=== PATIENT | male | born 1980 | race Caucasian/White ===

== ENCOUNTER → 2018-05-27 10:14 | Outpatient (CLI) | payer MEDICAID, SELFPAY ==
--- NOTE | 2018-05-27 10:22 | XR_ITS ---
XR wrist LT min 3V HISTORY pain ITS.REASON: cts ORDERING PHYSICIAN: Gabriela Kendrick PATIENT AGE: 37 years Comparison: None FINDINGS: No fracture or dislocation. No lytic or blastic change. There is normal mineralization.. The joint spaces are well-preserved. No significant degenerative/arthritic changes. No erosive changes evident.. IMPRESSION: Negative wrist
[2018-05-27 14:31] LABS: Basophils # 0.1 K/mm3 (0-0.2); Basophils % 0.4 % (0.1-2.0); Hematocrit 45.2 % (42.0-52.0); Hemoglobin 15.4 g/dL (14.1-18.0); Lymphocytes # 1.9 K/mm3 (0.7-4.5); Lymphocytes % 13.2 % (10-50); Mean Corpuscular HGB Conc 34.1 g/dL (31.8-35.4); Mean Corpuscular Hemoglobin 29.6 pg (27.0-31.2); Mean Corpuscular Volume 86.6 fl (80-94); Mean Platelet Volume 8.9 fl (7.4-10.4); Monocytes # 0.5 K/mm3 (0.1-1.0); Monocytes % 3.3 % (1.7-9.3); Neutrophils # 11.7 K/mm3 (1.8-7.8); Neutrophils % 83.1 % (37.0-80.0); Platelet Count 371 K/mm3 (142-424); Red Blood Count 5.22 M/mm3 (4.60-6.20); White Blood Count 14.1 K/mm3 (4.8-10.8)
[2018-05-27 14:41] LABS: Alanine Aminotransferase 50 U/L (12-78); Albumin Level 4.1 gm/dL (3.4-5.0); Albumin/Globulin Ratio 1.2 (1.1-1.8); Alkaline Phosphatase 78 U/L (46-116); Anion Gap 13.7 mEq/L (5-15); Aspartate Amino Transferase 17 U/L (15-37); Bilirubin,Total 0.6 mg/dL (0.2-1.0); Blood Urea Nitrogen 11 mg/dL (7-18); Calcium 9.4 mg/dL (8.5-10.1); Carbon Dioxide 27 mmol/L (21.0-32.0); Chloride 104 mmol/L (98-107); Chol/HDL Ratio 2.9 (1-3.5); Cholesterol 123 mg/dL (140-200); Creatinine,Serum 0.85 mg/dL (0.70-1.30); Estimated Glomerular Filt Rate 100 ml/min (>60); Free Thyroxine Index 4.6 ug/dL (5.93-13.13); GFR (African American) 121 ML/MIN (>60); Globulin 3.3 gm/dl (1.3-3.2); Glucose 126 mg/dL (74-106); HDL Cholesterol 42 mg/dL (27-67); LDL Cholesterol 64 mg/dL (0-130); Phosphorous 2.3 mg/dL (2.4-4.9); Potassium 4.7 mmoL/L (3.5-5.1); Sodium 140 mmol/L (136-145); T4 (Thyroxine) 15.9 ug/dl (4.7-13.3); Thyroid Stimulating Hormone 0.89 uIU/ml (0.358-3.740); Total Protein,Serum 7.4 gm/dL (6.4-8.2); Triglycerides 83 mg/dL (30-200); Triiodothryronine (T3) Uptake 29 % (31-39); VLDL Cholesterol 17 mg/dL (0-40)
[2018-05-27 15:01] LABS: Hemoglobin A1C 5.9 % (0.0-7.0)
[2018-05-27 15:33] LABS: Amphetamine/Metha Screen,Urine Positive ng/mL (<1000); Barbiturates Screen,Urine Negative ng/mL (<200); Benzodiazepines Screen,Urine Negative ng/mL (<200); Cannabinoid Screen,Urine Negative ng/mL (<50); Cocaine Screen,Urine Negative ng/mL (<300); Methadone Screen,Urine Negative ng/mL (<300); Opiate Screen,Urine Negative ng/mL (<300); Phencyclidine Screen,Urine Negative ng/mL (<25)
[2018-05-29 06:22] LABS: Hep A Ab, IgM Negative (Negative); Hepatitis B Core Antibody IgM Negative (Negative); Hepatitis B Surface Antigen Negative (Negative)
[2018-05-29 11:01] LABS: Hepatitis C Antibody >11.0 s/co ratio (0.0-0.9)
[2018-05-29 11:02] LABS: Microalbumin, Urine 4.7 ug/mL (Not Estab.)
== END ==
PROVIDERS: PCP Nurse Practitioner Family; Visit Provider Nurse Practitioner Family
DX: M25.532 Pain in left wrist (principal); I10 Essential (primary) hypertension; R53.83 Other fatigue; G56.02 Carpal tunnel syndrome, left upper limb; E55.9 Vitamin D deficiency, unspecified; K21.9 Gastro-esophageal reflux disease without esophagitis; R73.9 Hyperglycemia, unspecified
CPT/HCPCS: 73110; 80053; 80061; 80069; 80074; 80305; 82043; 82652; 83036; 84436; 84443; 84479; 85025

== ENCOUNTER 2023-04-04 13:12 | Emergency (ER) | payer MEDICAID, SELFPAY ==
[2023-04-04] VITALS (14 sets, daily range): BP systolic 83–123; BP diastolic 41–64; PULSE 94–113; RESP 20; TEMP 36.7; O2SAT 91–99; BMI 34.2
--- NOTE | 2023-04-04 13:18 | ECG_ITS ---
APPROVED REPORT Exam: Resting ECG HR:111 bpm ECG Measurements Heart Rate 111 AXES IL 135 P 55 QRSd 104 QRS 64 QT 311 T 55 QTc 377 Conclusion SINUS TACHYCARDIA POSSIBLE LEFT ATRIAL ENLARGEMENT [-0.1mV P-WAVE IN V1/V2] INCOMPLETE RIGHT BUNDLE BRANCH BLOCK [90+ ms QRS DURATION, TERMINAL R IN V1/V2, 40+ ms S IN I/aVL/V4/V5/V6] ABNORMAL RHYTHM ECG UNCONFIRMED REPORT Electronically signed by : Jeffry Bingham MD 04/06/2023 08:32:11
--- NOTE | 2023-04-04 13:21 | XR_ITS ---
PROCEDURE INFORMATION: Exam: XR Chest Exam date and time: 04/04/2023 1:19 PM Age: 42 years old Clinical indication: Pain; Other: Cp; Additional info: Chest pain TECHNIQUE: Imaging protocol: Radiologic exam of the chest. Views: 2 views. COMPARISON: No relevant prior studies available. FINDINGS: Lungs: No consolidation or lung nodules. Pleural spaces: No pleural effusion. No pneumothorax. Heart/Mediastinum: No abnormalities. No cardiomegaly. No pulmonary vascular congestion. Bones/joints: No fractures or bone lesions. IMPRESSION: No acute findings in the chest.
--- NOTE | 2023-04-04 13:26 | PC.NURSE ---
Pt gone to RAD via wheelchair
[2023-04-04 13:31] LABS: Chloride 101 mmol/L (98-107); Sodium 136 mmol/L (136-145)
[2023-04-04 13:32] LABS: Basophils % 0.4 % (0.1-2.0); Eosinophils # 0.3 K/mm3 (0.0-0.4); Eosinophils % 2.8 % (0.1-12.0); Hematocrit 37.3 % (42.0-52.0); Hemoglobin 12.7 g/dL (14.1-18.0); Lymphocytes # 2.3 K/mm3 (0.7-4.5); Mean Corpuscular Hemoglobin 29.8 pg (27.0-31.2); Mean Corpuscular Volume 87.7 fl (80-94); Mean Platelet Volume 8.9 fl (7.4-10.4); Monocytes # 0.6 K/mm3 (0.1-1.0); Neutrophils # 6.3 K/mm3 (1.8-7.8); Neutrophils % 66.8 % (37.0-80.0); Platelet Count 273 K/mm3 (142-424); Potassium 4.8 mmoL/L (3.5-5.1); Red Blood Count 4.26 M/mm3 (4.60-6.20); Red Cell Distribution Width 14.2 % (11.5-17.5); White Blood Count 9.4 K/mm3 (4.8-10.8)
--- NOTE | 2023-04-04 13:33 | PC.NURSE ---
Pt returned from RAD
[2023-04-04 13:34] LABS: Alanine Aminotransferase 150 U/L (12-78); Albumin/Globulin Ratio 1.4 (1.1-1.8); Alkaline Phosphatase 55 U/L (38-126); Anion Gap 14.8 mEq/L (5-15); Aspartate Amino Transferase 436 U/L (17-59); Bilirubin,Total 0.7 mg/dl (0.2-1.3); Blood Urea Nitrogen 75 mg/dl (9-20); Carbon Dioxide 25 mmol/L (22.0-30.0); Creatinine Clearance Estimated 37 mL/min (50-200); Estimated Glomerular Filt Rate 15 ml/min (>60); GFR (African American) 19 ML/MIN (>60); Globulin 2.9 g/dL (1.3-3.2); Total Protein,Serum 6.9 g/dl (6.3-8.2)
[2023-04-04 13:35] LABS: Calcium 7.4 mg/dl (8.4-10.2); Glucose 124 mg/dl (74-100)
--- NOTE | 2023-04-04 13:40 | PC.NURSE ---
lab called with critical creat 4.2 AWARE
[2023-04-04 13:47] LABS: Troponin I < 0.01 ng/ml (0.00-0.034)
--- NOTE | 2023-04-04 14:28 | CT_ITS ---
PROCEDURE INFORMATION: Exam: CTA Abdomen and Pelvis With Contrast Exam date and time: 04/04/2023 2:48 PM Age: 42 years old Clinical indication: Abdominal pain; Generalized; Additional info: Low abd pain rad to back, [place] TECHNIQUE: Imaging protocol: Computed tomographic angiography of the abdomen and pelvis with contrast. Exam focused on the arteries. 3D rendering (Not supervised by radiologist): MIP and/or 3D reconstructed images were created by the technologist. Radiation optimization: All CT scans at this facility use at least one of these dose optimization techniques: automated exposure control; mA and/or kV adjustment per patient size (includes targeted exams where dose is matched to clinical indication); or iterative reconstruction. Contrast material: ISOVUE; Contrast volume: 100 ml; Contrast route: INTRAVENOUS (IV); REPORTING DATA: Count of CT and Cardiac NM exams in prior 12 months: This patient has received 0 known CTs and 0 known cardiac nuclear medicine studies in the 12 months prior to the current study. COMPARISON: CT ANGIO CHEST 04/04/2023 2:48 PM FINDINGS: Aorta: No aortic aneurysm. No aortic dissection. Celiac trunk and mesenteric arteries: No occlusion or significant stenosis. Renal arteries: No occlusion or significant stenosis. Right iliac arteries: No occlusion or significant stenosis. Left iliac arteries: No occlusion or significant stenosis. Liver: No mass. Gallbladder and bile ducts: No calcified stones. No ductal dilation. Pancreas: No mass. No ductal dilation. Spleen: No splenomegaly. No mass or surrounding fluid. Adrenal glands: No mass. Kidneys and ureters: No solid mass. No calcified stones or hydronephrosis. Stomach and bowel: No intestinal masses, bowel wall thickening, or abnormal luminal dilatation. Appendix: No evidence of appendicitis. Intraperitoneal space: No free air. No significant fluid collection. Lymph nodes: No enlarged lymph nodes. Urinary bladder: No asymmetric bladder wall thickening or enhancement. Reproductive: No abnormalities as visualized. Bones/joints: No acute fracture or focal bone lesions. Soft tissues: No soft tissue masses. IMPRESSION: 1. No arterial stenosis or occlusions. No aortic aneurysm or dissection. 2. No acute findings in the abdomen and pelvis.
--- NOTE | 2023-04-04 14:28 | CT_ITS ---
PROCEDURE INFORMATION: Exam: CTA Chest With Contrast Exam date and time: 04/04/2023 2:48 PM Age: 42 years old Clinical indication: Pain; Chest pressure; Patient HX: Abd radiating to back; Additional info: Cp to back TECHNIQUE: Imaging protocol: Computed tomographic angiography of the chest with contrast. Exam focused on the arteries. 3D rendering (Not supervised by radiologist): MIP and/or 3D reconstructed images were created by the technologist. Radiation optimization: All CT scans at this facility use at least one of these dose optimization techniques: automated exposure control; mA and/or kV adjustment per patient size (includes targeted exams where dose is matched to clinical indication); or iterative reconstruction. Contrast material: ISOVUE; Contrast volume: 100 ml; Contrast route: INTRAVENOUS (IV); REPORTING DATA: Count of CT and Cardiac NM exams in prior 12 months: This patient has received 0 known CTs and 0 known cardiac nuclear medicine studies in the 12 months prior to the current study. COMPARISON: CR XR CHEST 2V 04/04/2023 1:19 PM FINDINGS: Pulmonary arteries: No pulmonary emboli. Aorta: No aortic aneurysm. No aortic dissection. Lungs: No consolidation. No masses. Pleural spaces: No pneumothorax. No pleural effusion. Heart: No cardiomegaly. No pericardial effusion. Lymph nodes: No enlarged lymph nodes. Bones/joints: No acute fracture. Soft tissues: No soft tissue masses. IMPRESSION: 1. No pulmonary emboli. No aortic aneurysm or intimal dissection. 2. No acute findings in the chest.
--- NOTE | 2023-04-04 14:35 | PC.NURSE ---
lactate sent to lab.
--- NOTE | 2023-04-04 14:41 | PC.NURSE ---
Pt gone to RAD via wheelchair
--- NOTE | 2023-04-04 14:42 | ED_ITS ---
Discharge Plan Disposition Patient Disposition: Xfer Short-Term Hosp Prescriptions Prescriptions: No Action prednisone 20 mg tablet 20 mg PO BID sulfamethoxazole-trimethoprim [Bactrim DS] 800-160 mg tablet 1 tab PO DAILY Referrals Follow up/Referrals: Jessy Dumas [Primary Care Provider] - See instructions Clinical Impressions Clinical Impression: Back pain, Abdominal pain, Chest pain, Shock, TOBY (acute kidney injury), Rhabdomyolysis Stand Alone Forms Stand Alone Forms: Transfer Record - ED Discharge ED Provider: Mauri Gonzalez General Adult HPI <Mauir Gonzalez MD - Last Filed: 04/04/23 16:01> General Chief complaint: Weakness Stated complaint: LEG PAIN Time Seen by Provider: 04/04/23 14:00 Mode of Arrival: Wheelchair Source of Information: Patient Limitations: No Limitations Description of Symptoms (Recalled from ER Triage Doc. by RN): pt has been having back and leg pain for the last two days then today when coming outside he had vision changes and felt like he couldnt see and got weak. pt has cardiac hx History of Present Illness HPI narrative: Patient is a 42-year-old male with past medical history of reported blood clots on dual antiplatelet therapy, hypertension who presents emergency department for evaluation of abdominal pain and back pain. Onset was acute, within the last 48 hours. Patient has had low back pain that radiates through to his abdomen. He has also had episodic substernal chest pain. Denies current chest pain or headache. No dysuria, no sick contacts, no vomiting. Pain is described as stab xenia and burning, worse on the left lumbar paraspinal area. He has had intermittent blurry vision when he stands from a seated position. No other acute complaints at this time. Of note patient's children have pediatric cardiac problems 1 of which has unfortunately , 1 of which is in a LifeVest. They state is genetic but do not know the exact name. Related Data Home Medications Medication Instructions Recorded Confirmed prednisone 20 mg tablet 20 mg PO BID 05/27/18 06/04/18 sulfamethoxazole 800 1 tab PO DAILY 06/04/18 06/04/18 mg-trimethoprim 160 mg tablet (Bactrim DS) Allergies Allergy/AdvReac Type Severity Reaction Status Date / Time coconut Allergy Verified 04/04/23 13:19 PFSH <Mauri Gonzalez MD - Last Filed: 04/04/23 16:01> [facility] Disclaimer: The information contained in this section may have been updated after the patient was seen, as this information can be updated by other users. Social History Smoking Status: Current every day smoker alcohol intake: current substance use type: denies use current occupational status: employed Travel in the last 8 weeks: None <Mauri Gonzalez MD - Last Filed: 04/04/23 16:01> ROS Obtained: Yes Systems reviewed as appropriate & no additional complaints except as documented Physical Exam <Mauri Gonzalez MD - Last Filed: 04/04/23 16:01> General General appearance: alert and in no apparent distress Head Head exam: atraumatic and normocephalic Eye Eye exam: Present PERRL and EOMI ENT ENT exam: Present mucous membranes moist Neck Neck exam: Present normal inspection Chest Chest inspection: Present normal inspection and symmetric chest wall rise Respiratory Respiratory exam: Present normal lung sounds bilaterally; Absent respiratory distress Cardiovascular Cardiovascular exam: Present regular rate, normal rhythm and other (Palpable dorsal pedal pulses bilaterally) Abdominal Exam Abdominal exam: Present soft and tenderness (Mild, suprapubic) Extremities Exam Extremities exam: Present normal inspection Back Exam Back exam: Present normal inspection; Absent tenderness Neurological Exam Neurological exam: Present alert; Absent motor sensory deficit Psychiatric Psychiatric exam: Present normal affect Skin Skin exam: Present warm and dry Medical Decision Making <Mauri Gonzalez MD - Last Filed: 04/04/23 16:01> Omid Inquiry Pt receiving controlled substance: No Vital Signs: 04/04/23 13:12 04/04/23 14:00 04/04/23 14:19 Temperature 98.1 F Temperature Source Oral Pulse Rate 97 H 101 H Pulse Rate [Right Radial] 113 H Respiratory Rate 20 Blood Pressure 83/41 L 91/53 L Blood Pressure [Right Arm] 106/50 L Blood Pressure Mean [Right Arm] 68 02 Sat by Pulse Oximetry 99 91 L 95 Oxygen Delivery Method Room Air Room Air Room Air 04/04/23 14:31 04/04/23 15:00 04/04/23 15:05 Temperature Temperature Source Pulse Rate 101 H 99 H 99 H Pulse Rate [Right Radial] Respiratory Rate Blood Pressure 100/49 L 99/49 L 98/51 L Blood Pressure [Right Arm] Blood Pressure Mean [Right Arm] 02 Sat by Pulse Oximetry 97 96 98 Oxygen Delivery Method Room Air Room Air 04/04/23 15:30 04/04/23 16:00 04/04/23 17:00 Temperature Temperature Source Pulse Rate 102 H 104 H 94 H Pulse Rate [Right Radial] Respiratory Rate Blood Pressure 105/60 L 100/53 L 117/64 Blood Pressure [Right Arm] Blood Pressure Mean [Right Arm] 02 Sat by Pulse Oximetry 96 95 96 Oxygen Delivery Method Room Air Room Air Room Air 04/04/23 17:30 04/04/23 18:00 Temperature Temperature Source Pulse Rate 97 H 105 H Pulse Rate [Right Radial] Respiratory Rate Blood Pressure 105/60 L 123/55 L Blood Pressure [Right Arm] Blood Pressure Mean [Right Arm] 02 Sat by Pulse Oximetry 92 L 96 Oxygen Delivery Method Room Air Room Air Lab Data Lab Results 04/04/23 13:10: WBC 9.4, RBC 4.26 L, Hgb 12.7 L, Hct 37.3 L, MCV 87.7, MCH 29.8, MCHC 34.0, RDW 14.2, Plt Count 273, MPV 8.9, Neut % (Auto) 66.8, Lymph % (Auto) 24.0, [place] % (Auto) 6.0, Eos % (Auto) 2.8, Baso % (Auto) 0.4, Neut # (Auto) 6.3, Lymph # (Auto) 2.3, [place] # (Auto) 0.6, Eos # (Auto) 0.3, Baso # (Auto) 0.0, Sodium 136, Potassium 4.8, Chloride 101, Carbon Dioxide 25, Anion Gap 14.8, BUN 75 H, Creatinine 4.20 H, Estimated Creat Clear 37, Estimated GFR 15 L*, Est GFR ( Amer) 19 L*, Glucose 124 H, Calcium 7.4 L, Total Bilirubin 0.7, AST 436 H*, ALT 150 H, Alkaline Phosphatase 55, Total Creatine Kinase 71906 H*, Troponin I < 0.01, Total Protein 6.9, Albumin 4.0, Globulin 2.9, Albumin/Globulin Ratio 1.4 04/04/23 14:32: Lactate 1.0, Lipase 78 04/04/23 15:27: Urine Color Yellow, Urine Appearance Clear, Urine pH 5.5, Ur Specific [place] 1.025, Urine Protein Negative, Urine Glucose (UA) Negative, Urine Ketones Negative, Urine Blood 2+, Urine Nitrate Negative, Urine Bilirubin Negative, Urine Urobilinogen 0.2, Ur Leukocyte Esterase Negative, Urine RBC 3-5, Urine WBC None, Ur Squamous Epith Cells 3-5, Calcium Oxalate Crystal Trace, Urine Bacteria Trace 04/04/23 16:30: PT 10.8, INR 1.00, Troponin I < 0.01 04/04/23 13:10 04/04/23 13:10 Orders (Tests/Meds): ED MEDICATIONS Generic Name Dose Route Start Last Admin Trade Name Freq PRN Reason Stop Dose Admin Norepinephrine Bitartrate 8 mg 258 mls @ 3.87 mls/hr 04/04/23 15:30 04/04/23 17:33 / Dextrose IV 05/04/23 15:29 Not Given .Q24H [facility] Protocol 2 MCG/MIN Sodium Chloride 1,000 mls @ 999 mls/hr 04/04/23 18:15 Sod Chlor 0.9% 1000ml Bag IV 04/04/23 19:15 .Q1H1M ONE Miscellaneous 1 each 04/04/23 15:45 04/04/23 16:10 Vancomycin Consult Request NOTAPPLIC 05/04/23 15:44 1 each CONSULT PHARMACY [facility] Administration Miscellaneous 1 each 04/04/23 15:45 04/04/23 16:10 Vancomycin Consult Request NOTAPPLIC 05/04/23 15:44 1 each CONSULT PHARMACY [facility] Administration Sodium Chloride 10 ml 04/04/23 13:21 Sodium Chloride 0.9% 10ml Flush Syringe IV 05/04/23 13:20 NEEDED PRN Maintain IV Site Discontinued Medications Generic Name Dose Route Start Last Admin Trade Name Freq PRN Reason Stop Dose Admin Lactated Ringer's 1,000 mls @ 999 mls/hr 04/04/23 15:26 04/04/23 15:39 Lactated Ringer's 1000 Ml Bag IV 04/04/23 16:26 999 mls/hr .Q1H1M ONE Administration Cefepime HCl 2 gm/ Sodium 100 mls @ 200 mls/hr 04/04/23 15:39 04/04/23 15:59 Chloride IV 04/04/23 16:08 200 mls/hr ONCE ONE Administration Metronidazole 500 mg in 100 mls @ 100 mls/hr 04/04/23 15:39 04/04/23 16:00 Flagyl 500mg/100ml Ivpb IV 04/04/23 16:38 100 mls/hr ONCE ONE Administration Calcium Gluconate 2,000 mg/ 120 mls @ 60 mls/hr 04/04/23 15:42 04/04/23 16:23 Sodium Chloride IV 04/04/23 17:41 60 mls/hr ONCE ONE Administration Vancomycin HCl 2,500 mg/ 250 mls @ 125 mls/hr 04/04/23 15:45 04/04/23 17:34 Sodium Chloride IV 04/04/23 17:44 125 mls/hr ONCE ONE Administration Iopamidol 100 ml 04/04/23 14:37 04/04/23 14:52 Iopamidol-370 (76%);100ml Bottle IV 04/04/23 14:38 100 ml ONCE ONE Administration Sodium Chloride 50 ml 04/04/23 14:37 04/04/23 14:52 0.9 % Sodium Chloride 50 Ml Vial IV 04/04/23 14:38 50 ml ONCE ONE Administration Sodium Chloride 10 ml 04/04/23 14:37 04/04/23 14:52 Sodium Chloride 0.9% 10ml Syr (Rad Only) IV 04/04/23 14:38 10 ml ONCE ONE Administration ORDERS Category Date Time Status CT angio abdomen pelvis Stat Cat Scan 04/04/23 14:[address] angio chest - dissection Stat Cat Scan 04/04/23 14:28 Completed POCUS Point of Care (ER Only) Stat Exams 04/04/23 14:28 Ordered XR chest 2V Stat Exams 04/04/23 13:21 Completed CK [Creatine Kinase] Stat Lab 04/04/23 13:10 Completed Complete Blood Count Auto Diff Stat Lab 04/04/23 13:10 Completed Comprehensive Metabolic Panel Stat Lab 04/04/23 13:10 Completed HCV RNA PCR, Quant Stat Lab 04/04/23 15:30 Received HIV Panel [id number] Stat Lab 04/04/23 15:30 Received Hepatitis Panel Stat Lab 04/04/23 15:30 Received Lactic Acid Stat Lab 04/04/23 14:32 Completed Lipase Stat Lab 04/04/23 14:32 Completed PT INR [Prothrombin Time INR] Stat Lab 04/04/23 16:30 Completed Troponin I Q3H Lab 04/04/23 16:30 Completed Troponin I Q3H Lab 04/04/23 19:30 Ordered Troponin I Stat Lab 04/04/23 13:10 Completed UA [Urinalysis and Microscopic] Stat Lab 04/04/23 15:27 Completed Blood Culture Stat Micro 04/04/23 14:40 Ordered ECG Data Tracing #1: Independently interpreted by me, rate is 111, rhythm is regular, axis is normal, no ST elevation in anatomical contiguous leads, QTc 377 HEART Score History (anamnesis): Slightly suspicious ECG: Non-specific disturbance Age: <45 years Risk factors: 1-2 risk factors Troponin: </= normal limit HEART Score: 2 Medical Decision Narrative: In summary patient is a 42-year-old male with past medical history described above who presents emergency department for evaluation of low back pain, abdominal pain, episodic chest pain. Patient is hemodynamically unstable, hypotensive upon arrival, nontoxic afebrile. Differential includes ACS, aortic dissection, among others. Workup will be conducted with hematologic labs, urinalysis, CT of the chest, abdomen, pelvis, EKG, serial troponins. Initial interventions include crystalloid bolus. Patient workup reviewed by me, patient has significant TOBY with normal creatinine baseline, mild hypocalcemia which will be repleted. Patient had acceptable mean arterial pressure greater than 65 s/p 1 liter of crystalloid. Second liter of crystalloid will be administered. Initial troponin undetectably low, patient has significant transaminitis. Patient has no elevated lipase, no right upper quadrant tenderness or elevated bilirubin to suggest cholangitis. CT imaging shows no acute pathology in the chest, abdomen, pelvis. Upon repeat questioning patient has no diagnosis of hepatitis C for which she has not been treated for over 10 years. Urinalysis not consistent with infection. Given that patient is not in shock from dissection or other vascular pathology has had previously suspected patient will be started on broad-spectrum antibiotics with vancomycin, cefepime, metronidazole. GARRIDO exam performed at bedside by Dr. Dozier with no acute fin dings (images were not saved to permanent archive therefore no note is warranted). Patient is on lisinopril and HCTZ, it is possible that since they are renally cleared they are becoming supratherapeutic causing his hypotension however infection cannot be ruled out at this time. Repeat evaluation pending at time of transfer of care to the oncoming physician, Dr. Dozier. <Félix Dozier MD - Last Filed: 04/04/23 18:18> Vital Signs: 04/04/23 13:12 04/04/23 14:00 04/04/23 14:19 Temperature 98.1 F Temperature Source Oral Pulse Rate 97 H 101 H Pulse Rate [Right Radial] 113 H Respiratory Rate 20 Blood Pressure 83/41 L 91/53 L Blood Pressure [Right Arm] 106/50 L Blood Pressure Mean [Right Arm] 68 02 Sat by Pulse Oximetry 99 91 L 95 Oxygen Delivery Method Room Air Room Air Room Air 04/04/23 14:31 04/04/23 15:00 04/04/23 15:05 Temperature Temperature Source Pulse Rate 101 H 99 H 99 H Pulse Rate [Right Radial] Respiratory Rate Blood Pressure 100/49 L 99/49 L 98/51 L Blood Pressure [Right Arm] Blood Pressure Mean [Right Arm] 02 Sat by Pulse Oximetry 97 96 98 Oxygen Delivery Method Room Air Room Air 04/04/23 15:30 04/04/23 16:00 04/04/23 17:00 Temperature Temperature Source Pulse Rate 102 H 104 H 94 H Pulse Rate [Right Radial] Respiratory Rate Blood Pressure 105/60 L 100/53 L 117/64 Blood Pressure [Right Arm] Blood Pressure Mean [Right Arm] 02 Sat by Pulse Oximetry 96 95 96 Oxygen Delivery Method Room Air Room Air Room Air 04/04/23 17:30 04/04/23 18:00 Temperature Temperature Source Pulse Rate 97 H 105 H Pulse Rate [Right Radial] Respiratory Rate Blood Pressure 105/60 L 123/55 L Blood Pressure [Right Arm] Blood Pressure Mean [Right Arm] 02 Sat by Pulse Oximetry 92 L 96 Oxygen Delivery Method Room Air Room Air Lab Data Lab results reviewed: Yes I reviewed the patient's lab results. Lab Results 04/04/23 13:10: WBC 9.4, RBC 4.26 L, Hgb 12.7 L, Hct 37.3 L, MCV 87.7, MCH 29.8, MCHC 34.0, RDW 14.2, Plt Count 273, MPV 8.9, Neut % (Auto) 66.8, Lymph % (Auto) 24.0, [place] % (Auto) 6.0, Eos % (Auto) 2.8, Baso % (Auto) 0.4, Neut # (Auto) 6.3, Lymph # (Auto) 2.3, [place] # (Auto) 0.6, Eos # (Auto) 0.3, Baso # (Auto) 0.0, Sodium 136, Potassium 4.8, Chloride 101, Carbon Dioxide 25, Anion Gap 14.8, BUN 75 H, Creatinine 4.20 H, Estimated Creat Clear 37, Estimated GFR 15 L*, Est GFR ( Amer) 19 L*, Glucose 124 H, Calcium 7.4 L, Total Bilirubin 0.7, AST 436 H*, ALT 150 H, Alkaline Phosphatase 55, Total Creatine Kinase 01653 H*, Troponin I < 0.01, Total Protein 6.9, Albumin 4.0, Globulin 2.9, Albumin/Globulin Ratio 1.4 04/04/23 14:32: Lactate 1.0, Lipase 78 04/04/23 15:27: Urine Color Yellow, Urine Appearance Clear, Urine pH 5.5, Ur Specific [place] 1.025, Urine Protein Negative, Urine Glucose (UA) Negative, Urine Ketones Negative, Urine Blood 2+, Urine Nitrate Negative, Urine Bilirubin Negative, Urine Urobilinogen 0.2, Ur Leukocyte Esterase Negative, Urine RBC 3-5, Urine WBC None, Ur Squamous Epith Cells 3-5, Calcium Oxalate Crystal Trace, Urine Bacteria Trace 04/04/23 16:30: PT 10.8, INR 1.00, Troponin I < 0.01 Orders (Tests/Meds): ED MEDICATIONS Generic Name Dose Route Start Last Admin Trade Name Freq PRN Reason Stop Dose Admin Norepinephrine Bitartrate 8 mg 258 mls @ 3.87 mls/hr 04/04/23 15:30 04/04/23 17:33 / Dextrose IV 05/04/23 15:29 Not Given .Q24H [facility] Protocol 2 MCG/MIN Sodium Chloride 1,000 mls @ 999 mls/hr 04/04/23 18:15 Sod Chlor 0.9% 1000ml Bag IV 04/04/23 19:15 .Q1H1M ONE Miscellaneous 1 each 04/04/23 15:45 04/04/23 16:10 Vancomycin Consult Request NOTAPPLIC 05/04/23 15:44 1 each CONSULT PHARMACY [facility] Administration Miscellaneous 1 each 04/04/23 15:45 04/04/23 16:10 Vancomycin Consult Request NOTAPPLIC 01/29/24 15:44 1 each CONSULT PHARMACY [facility] Administration Sodium Chloride 10 ml 04/04/23 13:21 Sodium Chloride 0.9% 10ml Flush Syringe IV 05/04/23 13:20 NEEDED PRN Maintain IV Site Discontinued Medications Generic Name Dose Route Start Last Admin Trade Name Freq PRN Reason Stop Dose Admin Lactated Ringer's 1,000 mls @ 999 mls/hr 04/04/23 15:26 04/04/23 15:39 Lactated Ringer's 1000 Ml Bag IV 04/04/23 16:26 999 mls/hr .Q1H1M ONE Administration Cefepime HCl 2 gm/ Sodium 100 mls @ 200 mls/hr 04/04/23 15:39 04/04/23 15:59 Chloride IV 04/04/23 16:08 200 mls/hr ONCE ONE Administration Metronidazole 500 mg in 100 mls @ 100 mls/hr 04/04/23 15:39 04/04/23 16:00 Flagyl 500mg/100ml Ivpb IV 04/04/23 16:38 100 mls/hr ONCE ONE Administration Calcium Gluconate 2,000 mg/ 120 mls @ 60 mls/hr 04/04/23 15:42 04/04/23 16:23 Sodium Chloride IV 04/04/23 17:41 60 mls/hr ONCE ONE Administration Vancomycin HCl 2,500 mg/ 250 mls @ 125 mls/hr 04/04/23 15:45 04/04/23 17:34 Sodium Chloride IV 04/04/23 17:44 125 mls/hr ONCE ONE Administration Iopamidol 100 ml 04/04/23 14:37 04/04/23 14:52 Iopamidol-370 (76%);100ml Bottle IV 04/04/23 14:38 100 ml ONCE ONE Administration Sodium Chloride 50 ml 04/04/23 14:37 04/04/23 14:52 0.9 % Sodium Chloride 50 Ml Vial IV 04/04/23 14:38 50 ml ONCE ONE Administration Sodium Chloride 10 ml 04/04/23 14:37 04/04/23 14:52 Sodium Chloride 0.9% 10ml Syr (Rad Only) IV 04/04/23 14:38 10 ml ONCE ONE Administration ORDERS Category Date Time Status CT angio abdomen pelvis Stat Cat Scan 04/04/23 14:[address] angio chest - dissection Stat Cat Scan 04/04/23 14:28 Completed POCUS Point of Care (ER Only) Stat Exams 04/04/23 14:28 Ordered XR chest 2V Stat Exams 04/04/23 13:21 Completed CK [Creatine Kinase] Stat Lab 04/04/23 13:10 Completed Complete Blood Count Auto Diff Stat Lab 04/04/23 13:10 Completed Comprehensive Metabolic Panel Stat Lab 04/04/23 13:10 Completed HCV RNA PCR, Quant Stat Lab 04/04/23 15:30 Received HIV Panel [id number] Stat Lab 04/04/23 15:30 Received Hepatitis Panel Stat Lab 04/04/23 15:30 Received Lactic Acid Stat Lab 04/04/23 14:32 Completed Lipase Stat Lab 04/04/23 14:32 Completed PT INR [Prothrombin Time INR] Stat Lab 04/04/23 16:30 Completed Troponin I Q3H Lab 04/04/23 16:30 Completed Troponin I Q3H Lab 04/04/23 19:30 Ordered Troponin I Stat Lab 04/04/23 13:10 Completed UA [Urinalysis and Microscopic] Stat Lab 04/04/23 15:27 Completed Blood Culture Stat Micro 04/04/23 14:40 Ordered HEART Score HEART Score: 2 Medical Decision Narrative: In summary patient is a 42-year-old male with past medical history described above who presents emergency department for evaluation of low back pain, abdominal pain, episodic chest pain. Patient is hemodynamically unstable, hypotensive upon arrival, nontoxic afebrile. Differential includes ACS, aortic dissection, among others. Workup will be conducted with hematologic labs, urinalysis, CT of the chest, abdomen, pelvis, EKG, serial troponins. Initial interventions include crystalloid bolus. Patient workup reviewed by me, patient has significant TOBY with normal creatinine baseline, mild hypocalcemia which will be repleted. Patient had acceptable mean arterial pressure greater than 65 s/p 1 liter of crystalloid. Second liter of crystalloid will be administered. Initial troponin undetectably low, patient has significant transaminitis. Patient has no elevated lipase, no right upper quadrant tenderness or elevated bilirubin to suggest cholangitis. CT imaging shows no acute pathology in the chest, abdomen, pelvis. Upon repeat questioning patient has no diagnosis of hepatitis C for which she has not been treated for over 10 years. Urinalysis not consistent with infection. Given that patient is not in shock from dissection or other vascular pathology has had previously suspected patient will be started on broad-spectrum antibiotics with vancomycin, cefepime, metronidazole. GARRIDO exam performed at bedside by Dr. Dozier with no acute findings (images were not saved to permanent archive therefore no note is warranted). Patient is on lisinopril and HCTZ, it is possible that since they are renally cleared they are becoming supratherapeutic causing his hypotension however infection cannot be ruled out at this time. Repeat evaluation pending at time of transfer of care to the oncoming physician, Dr. Dozier. This is Dr. Dozier took over from Dr. Gonzalez initial workup was complete I was closing the loop on getting the patient admitted and transferred. I spoke with [facility] medicine doctor who would like the patient to be transferred at a location where there is nephrology coverage. I then spoke with [facility] and he was placed on a waiting list but we called [facility] and spoke with Dr. Villarreal who accepted the patient. I reviewed the case with Dr. Villarreal and the severe back pain and the trace urine we added a CK on which was significant elevated at 34,000 which is explaining the patient's hypotension and renal failure. I went back and discussed the patient adamantly denies using any amphetamines or cocaine. He states that he has been laying around doing nothing in longterm for the last 90 days and had some severe back pain at the very end of his incarceration. This is likely the cause of his rhabdomyo lysis. As of 6:17 PM patient has had 2 L of fluids. I ordered an additional liter of normal saline pending transfer but patient will need continued IV fluids. Sodium bicarb has not been administered due to patient's hypocalcemia. Critical Care <Mauri Gonzalez MD - Last Filed: 04/04/23 16:01> Critical Care Time Critical Care Time: Yes Attestation: On 04/04/23, the high probability of a clinically significant, sudden or life threatening deterioration of the following system(s) required my full and direct attention, intervention and personal management. The time I documented below is in addition to time spent performing reported procedures but includes the following listed in this critical care notation. Total Time Total Critical Care Time: 35 <Félix Dozier MD - Last Filed: 04/04/23 18:18> Total Time Total Critical Care Time: 65
[2023-04-04] MEDS: IOPAMIDOL-370 (76%);100ML BOTTLE 100 ML IV (14:52)
[2023-04-04] MEDS: SODIUM CHLORIDE 0.9% 10ML SYR (RAD ONLY) 10 ML IV (14:52)
[2023-04-04] MEDS: 0.9 % SODIUM CHLORIDE 50 ML VIAL IV (14:52)
--- NOTE | 2023-04-04 14:55 | PC.NURSE ---
Pt returned from RAD
[2023-04-04 15:00] LABS: Lipase 78 U/L (23-300)
--- NOTE | 2023-04-04 15:25 | PC.NURSE ---
Dr. Gonzalez at BS to update pt on results and POC
[2023-04-04 15:31] LABS: Microscopic, Urine URINE MICROSCOPIC (MICROSCOPIC)
[2023-04-04 15:32] LABS: Appearance,Urine CLEAR (Clear); Bilirubin,Urine Negative (Negative); Blood, Urine 2+ (Negative); Color,Urine YELLOW (Yellow); Glucose,Urine (UA) Negative (Negative); Ketones,Urine Negative (Negative); Leukocyte Esterase,Urine Negative (Negative); Nitrate,Urine Negative (Negative); PH,Urine 5.5 (5.0-8.5); Protein,Urine Negative (Negative); Specific Gravity, Urine 1.025 (1.005-1.030); Urobilinogen,Urine 0.2 EU/dl (0.2)
[2023-04-04] MEDS: LACTATED RINGERS 1000ML 1,000 ML 999 ML IV (15:39)
--- NOTE | 2023-04-04 15:44 | PC.NURSE ---
Dr. Dozier at BS
[2023-04-04 15:51] LABS: Bacteria,Urine Trace /lpf; Calcium Oxalate Crystals,Urine Trace /lpf
[2023-04-04] MEDS: CEFEPIME HCL 2 GM in 0.9 % SODIUM CHLORIDE 100 ML IV (15:59)
[2023-04-04] MEDS: METRONIDAZ/SOD CHL 500 MG/100 ML PIGGYBACK 100 MG IV (16:00)
--- NOTE | 2023-04-04 16:09 | PC.NURSE ---
DR HERNANDEZ TALKING WITH DR ABEL
[2023-04-04] MEDS: VANCOMYCIN CONSULT REQUEST 1 EACH NOTAPPLIC ×2 (16:10)
--- NOTE | 2023-04-04 16:22 | PC.NURSE ---
Spoke with pt logistics at [facility]. Pt placed on wait list at this time and advised they would call back when they have a bed available.
[2023-04-04] MEDS: CALCIUM GLUCONATE 2,000 MG in 0.9 % SODIUM CHLORIDE 100 ML 60 MG IV (16:23)
--- NOTE | 2023-04-04 16:34 | PC.NURSE ---
Waiting program director [employer] back from [facility] transfer slater about possible transfer to [place]
--- NOTE | 2023-04-04 16:39 | PC.NURSE ---
Dr. Dozier speaking with Dr. Nuno at [facility]
[2023-04-04 16:46] LABS: Prothrombin Time 10.8 seconds (10.1-12.5)
--- NOTE | 2023-04-04 16:46 | PC.NURSE ---
Dr. Nuno accepted pt to [facility]
[2023-04-04 16:58] LABS: Troponin I < 0.01 ng/ml (0.00-0.034)
[2023-04-04] MEDS: VANCOMYCIN HCL 2,500 MG in 0.9 % SODIUM CHLORIDE 250 ML 125 MG IV (17:34)
[2023-04-04 18:03] LABS: Creatine Kinase 34141 U/L (55-170)
[2023-04-04] MEDS: 0.9 % SODIUM CHLORIDE 1000ML 1,000 ML 999 ML IV (18:19)
--- NOTE | 2023-04-04 18:28 | PC.NURSE ---
Attempted to call report to [place] ICU charge managerJESSY garcia. Tatum states they are in the middle of report and have a critical patient they call dealing with and to call back
--- NOTE | 2023-04-04 19:09 | PC.NURSE ---
Called report to Zulay JIMÉNEZ at ICU in [place] and answered all questions
--- NOTE | 2023-04-04 19:27 | PC.NURSE ---
Gave report to [facility] for transport
--- NOTE | 2023-04-06 06:22 | PC.NURSE ---
chart accessed for tranfer info for . E
[2023-04-08 07:11] LABS: HIV Screen 4th Generation wRfx Non Reactive (Non Reactive)
--- NOTE | 2023-04-09 06:34 | PC.NURSE ---
prelim blood cx's negative. waiting on final report. patient transferred to [facility]
[2023-04-10 18:09] LABS: HBsAg Screen Negative (Negative); HCV Ab Reactive (Non Reactive); Hep A Ab, IGM Negative (Negative); Hep B Core Ab, IgM Negative (Negative)
== END 2023-04-04 19:34 | disposition short-term general hospital (02) ==
PROVIDERS: Student in an Organized Health Care Education/Training Program; Emergency Provider Emergency Medicine; PCP Family Medicine
DX: M62.82 Rhabdomyolysis (principal); N17.9 Acute kidney failure, unspecified; R07.9 Chest pain, unspecified; R57.9 Shock, unspecified; F17.200 Nicotine dependence, unspecified, uncomplicated
CPT/HCPCS: 71046; 71275; 74174; 80053; 80074; 81001; 82550; 83605; 83690; 84484; 85025; 85610; 86703; 87040; 87522; 93005; 96361; 96365; 96366; 96367; 96368; 99291; G0432; J3370; Q9967